=== PATIENT | female | born 1975 | race Caucasian/White ===

== ENCOUNTER 2019-03-04 16:55 | Emergency (ER) | payer OTHER, MEDICAID, SELFPAY ==
[2019-03-04 17:02] VITALS: BP 131/79; PULSE 64; RESP 20; TEMP 36.8; O2SAT 96
[2019-03-04 17:32] LABS: Add Manual Diff / Slide Review NO; Basophils Absolute Auto 100 /uL (0-100); Basophils Percent Auto 0.7 % (0-2); Eosinophils Absolute Auto 0 /uL (0-450); Eosinophils Percent Auto 0.4 % (2-4); Hematocrit 45.4 % (36-46); Hemoglobin 15.1 g/dL (12.0-16.0); Lymphocytes Absolute Auto 1800 /uL (1100-4500); Lymphocytes Percent Auto 20.3 % (25-40); Mean Corpuscular HGB Conc 33.2 % (30-36); Mean Corpuscular Hemoglobin 29.1 PG (26-34); Mean Corpuscular Volume 87.6 fL (80-100); Monocytes Absolute Auto 700 /uL (0-900); Monocytes Percent Auto 8.3 % (3-14); Neutrophils Absolute Auto 6200 /uL (1500-7000); Neutrophils Percent Auto 70.3 % (50-75); Platelet Count 230 X10^3/uL (150-400); Red Blood Cell Count 5.18 X10^6/uL (4.0-5.2); White Blood Cell Count 8.8 X10^3/uL (4.5-11.0)
[2019-03-04 17:48] LABS: PTT Partial Thromboplastin Tim 29 SECONDS (26.4-36.2)
[2019-03-04 17:54] LABS: Alanine Aminotransferase 65 IU/L (9-52); Albumin 4.3 g/dL (3.5-5.0); Albumin Globulin Ratio 1.5 (1.0-2.8); Alkaline Phosphatase 54 U/L (38-126); Aspartate Aminotransferase 30 IU/L (14-36); Bilirubin Total 0.6 mg/dL (0.2-1.3); Blood Urea Nitrogen 19 mg/dL (7-17); Calcium 9.6 mg/dL (8.4-10.2); Carbon Dioxide 26 mmol/L (22-32); Chloride 103 mmol/L (98-107); Globulin 2.9 g/dL (1.7-4.1); Glucose 105 mg/dL (70-100); HEMOLYSIS < 15 (0-50); Lipase 347 U/L (23-300); Potassium 4.5 mmol/L (3.4-5.1); Sodium 139 mmol/L (137-145); Total Protein 7.2 g/dL (6.3-8.2)
[2019-03-04 19:14] LABS: Bacteria Urine None Seen
[2019-03-04 19:23] LABS: RBC Urine 10-30/HPF (0-5/HPF); Squamous Epithelial Cell Urine 0-1 /HPF (0-5/HPF); WBC Urine 1-5/HPF (0-5/HPF)
[2019-03-04 19:24] LABS: Culture Indicated Urine Cult Not Indicated
[2019-03-04 20:04] VITALS: BP 134/69; PULSE 60; RESP 19; O2SAT 96
[2019-03-04 21:00] VITALS: BP 126/62; PULSE 51; RESP 17; O2SAT 95
[2019-03-04] MEDS: ONDANSETRON 4 MG ODT SL (21:45)
--- NOTE | 2019-03-04 22:47 | PC.NURSE ---
Reports nausea has improved since zofran given.
--- NOTE | 2019-03-04 22:59 | ED.NAVMDI ---
HPI - Nausea/Vomiting/Diarrhea General Chief complaint: Nausea/Vomiting/Diarrhea Stated complaint: ABD PAIN, DIFFICULTY WALKING SENT BY [facility] Time Seen by Provider: 03/04/19 20:55 Source: patient Mode of arrival: ambulatory Limitations: no limitations History of Present Illness HPI Narrative: Patient complains of right flank and abdominal pain, nausea, and vomiting which have been coming and going for the last 3 months. Patient states this episode started yesterday. She denies fevers or chills. She has been having ongoing dysuria, as well as hematuria, for which she is scheduled to follow-up with a urologist later this month. She is also supposed to follow up with a b2b sales representative regarding her ongoing abdominal symptoms. Patient states that she has had a total hysterectomy, as well as a cholecystectomy. She states she also has been noticing some right-sided back pain. She denies any injury. No chest symptoms. No cough or shortness of breath. No chest pain. Patient states that she was told she has a cyst in her low abdomen, but that this is not an ovarian cyst, because her ovaries have been removed as part of the hysterectomy. No other complaints at this time. Related Data Home Medications Medication Instructions Recorded Confirmed amlodipine 5 mg PO DAILY 03/04/19 03/04/19 buspirone 10 mg PO TID 03/04/19 03/04/19 diclofenac sodium 75 mg PO BID 03/04/19 03/04/19 gabapentin 300 mg PO TID 03/04/19 03/04/19 guanfacine 2 mg PO DAILY 03/04/19 03/04/19 hydroxyzine pamoate 25 mg PO DAILY 03/04/19 03/04/19 levofloxacin 750 mg PO DAILY 03/04/19 03/04/19 lisinopril 20 mg PO DAILY 03/04/19 03/04/19 metformin 1,000 mg PO BID 03/04/19 03/04/19 ondansetron 4 mg PO Q6H PRN 03/04/19 03/04/19 oxycodone-acetaminophen 1 tab PO TID PRN 03/04/19 03/04/19 prazosin 5 mg PO TID 03/04/19 ranitidine HCl 300 mg PO DAILY 03/04/19 03/04/19 sertraline 25 mg PO DAILY 03/04/19 03/04/19 trazodone 100 mg PO DAILY 03/04/19 03/04/19 Previous Rx's Medication Instructions Recorded ondansetron 4 mg PO Q6H PRN #10 tab 03/05/19 Allergies Allergy/AdvReac Type Severity Reaction Status Date / Time Penicillins [PENICILLINS] Allergy Unknown Unverified 10/30/17 12:21 Sulfa (Sulfonamide Allergy Unknown Unverified 10/30/17 12:21 Antibiotics) [SULFA (SULFONAMIDE ANTIBIOTICS)] Review of Systems Constitutional Denies chills, Denies fever(s), Denies lethargy and Denies weakness Eyes Denies change in vision, Denies eye discharge, Denies irritation and Denies loss of vision ENT Ears, Nose, Mouth, and Throat: Denies change in voice, Denies neck pain and Denies sore throat Cardiovascular Denies chest pain, Denies irregular heart rhythm, Denies lightheadedness, Denies palpitations, Denies dyspnea, Denies dyspnea on exertion and Denies orthopnea Respiratory Denies cough, Denies dyspnea, Denies dyspnea on exertion and Denies wheezing Gastrointestinal Gastrointestinal: Reports abdominal pain, Denies change in bowel habits, Denies diarrhea, Reports nausea and Reports vomiting Genitourinary Denies hematuria, Denies flank pain, Denies urinary incontinence and Denies urinary urgency Musculoskeletal Denies neck pain Integumentary/Breasts Denies pruritus, Denies erythema, Denies rash and Denies wounds Neurologic Denies confusion, Denies loss of vision and Denies weakness Psychiatric Denies anxiety, Denies confusion, Denies depression, Denies homicidal ideation and Denies suicidal ideation Endocrine Denies palpitations Hematologic/Lymphatic Denies easy bruising Allergic/Immunologic Denies wheezing PFSH Medical History (Updated 03/05/19 @ 01:19 by Angelica Lee MD) H/O: hysterectomy (Acute) Chronic abdominal pain (Acute) Obesity (Acute) Anxiety (Acute) Surgical History Hx of cholecystectomy (Acute) Social History Smoking Status: Never smoker Social History Smoking Status: Never smoker Exam Initial Vital Signs Initial Vital Signs: Vital Signs Temperature 98.2 F 03/04/19 17:02 Pulse Rate 64 03/04/19 17:02 Respiratory Rate 20 03/04/19 17:02 Blood Pressure 131/79 03/04/19 17:02 Pulse Oximetry 96 03/04/19 17:02 Const General: cooperative and well developed Nutritional Appearance: well nourished Orientation: alert, awake, oriented x3 and not confused [facility] Head: normocephalic and atraumatic Ears: external ears normal Nose: external nose normal and No nasal discharge Face and sinus: face symmetric and No dry mucous membranes Mouth: oral mucosae normal and moist mucous membranes Teeth and gingiva: dentition normal Eyes General: appearance normal, both eyes and all related structures Eyelids: eyelids normal Conjunctivae: conjunctivae normal Sclera: sclerae normal Pupils: PERRL EOM: EOM intact bilaterally Neck Neck: normal visual inspection, trachea midline, No lymphadenopathy, No midline deformity and No JVD Lymphatic: No lymphedema Chest Chest: normal inspection of the chest Resp Effort & Inspection: normal respiratory effort, able to speak in complete sentences, no respiratory distress and no use of accessory muscles Auscultation: clear to auscultation bilaterally, no rales, no rhonchi and no wheezes Cardio Rate: regular rate Rhythm: regular rhythm Heart Sounds: no click, no gallops, no murmurs and no rubs Pulses: normal peripheral pulses GI Inspection: non-distended Palpation: soft, no hepatosplenomegaly, No guarding, No pulsatile mass and tender (Diffuse, right-sided and epigastric, moderate; no rebound) Back/Spine/Pelvis Back: CVA tenderness (Mild) right Cervical Spine: cervical ROM normal and No pain with cervical ROM Thoracic/Lumbar Spine: thoracic and lumbar spine normal to inspection Skin General: no rashes or lesions noted, No jaundice and No petechiae Neuro General: alert, oriented x3, gait normal and no focal motor deficits Speech: speech normal Extrem General: full ROM, no clubbing, cyanosis or edema, no pedal edema and no calf tenderness Psych Appearance: well kempt Mental Status: mental status grossly normal Attitude: cooperative Thought Content: normal and suicidality Judgment: judgment good Course Course Narrative: Patient was worked up with laboratory studies and urinalysis. The patient and mother reported that the patient has had many many CTs for abdominal symptoms, including her most recent one at [facility] on February 03. As such, given the ongoing nature of her symptoms, I did not feel that a repeat CT scan should be done at this time. Patient's laboratory studies were unremarkable. She was treated symptomatically in the emergency department, and found to be feeling better. We have discussed the importance of follow-up, as well as the usual indications for return. We have also discussed home management of the symptoms. Orders Ordered: Discontinued Medications Hydromorphone HCl (Dilaudid) 1 mg IV NOW ONE Stop: 03/05/19 00:28 Last Admin: 03/05/19 00:36 Dose: 1 mg Sodium Chloride (Normal Saline 0.9%) 1,000 mls @ 1,000 mls/hr IV BOLUS ONE Stop: 03/05/19 00:14 Last Infusion: 03/05/19 00:37 Dose: 1,000 mls/hr Admin: 03/04/19 23:22 Dose: 1,000 mls/hr Ketorolac Tromethamine (Toradol) 30 mg IV NOW ONE Stop: 03/04/19 23:17 Last Admin: 03/04/19 23:22 Dose: 30 mg Ondansetron HCl (Zofran Odt) 4 mg SL NOW ONE Stop: 03/04/19 21:43 Last Admin: 03/04/19 21:45 Dose: 4 mg Ondansetron HCl (Zofran) 4 mg IV NOW ONE Stop: 03/04/19 23:16 Last Admin: 03/04/19 23:22 Dose: 4 mg Vital Signs - 8 hr 03/04/19 17:02 03/04/19 20:04 03/04/19 21:00 Temperature 98.2 F Pulse Rate 64 60 51 L Respiratory Rate 20 19 17 Blood Pressure 131/79 Blood Pressure [Left Arm] 134/69 126/62 Pulse Oximetry 96 96 95 MDM - Nausea/Vomiting/Diarrhea Medical Records Attestation: I reviewed the patient's medical records. Lab Data Attestation: I reviewed the patient's lab results. Result diagrams: 03/04/19 17:25 03/04/19 17:25 Lab Results 03/04/19 03/04/19 03/04/19 Range/Units 17:25 17:25 17:25 WBC 8.8 (4.5-11.0) X10^3/uL RBC 5.18 (4.0-5.2) X10^6/uL Hgb 15.1 (12.0-16.0) g/dL Hct 45.4 (36-46) % MCV 87.6 (80-100) fL MCH 29.1 (26-34) PG MCHC 33.2 (30-36) % RDW 17.0 H (11.6-14.8) % Plt Count 230 (150-400) X10^3/uL Neut % (Auto) 70.3 (50-75) % Lymph % (Auto) 20.3 L (25-40) % Gordon % (Auto) 8.3 (3-14) % Eos % (Auto) 0.4 L (2-4) % Baso % (Auto) 0.7 (0-2) % Neut # (Auto) 6200 (7136-9237) /uL Lymph # (Auto) 1800 (9667-7716) /uL Gordon # (Auto) 700 (0-900) /uL Eos # (Auto) 0 (0-450) /uL Baso # (Auto) 100 (0-100) /uL PT 11.0 (10.1-12.7) SECONDS INR 1.0 (0.9-1.3) APTT 29 (26.4-36.2) SECONDS Sodium 139 (137-145) mmol/L Potassium 4.5 (3.4-5.1) mmol/L Chloride 103 (98-107) mmol/L Carbon Dioxide 26 (22-32) mmol/L BUN 19 H (7-17) mg/dL Creatinine 1.00 (0.52-1.04) mg/dL Estimated GFR 60.0 (>60) mL/min BUN/Creatinine Ratio 19.0 (6-22) Glucose 105 H (70-100) mg/dL Calcium 9.6 (8.4-10.2) mg/dL Total Bilirubin 0.6 (0.2-1.3) mg/dL AST 30 (14-36) IU/L ALT 65 H (9-52) IU/L Alkaline Phosphatase 54 (38-126) U/L Total Protein 7.2 (6.3-8.2) g/dL Albumin 4.3 (3.5-5.0) g/dL Globulin 2.9 (1.7-4.1) g/dL Albumin/Globulin Ratio 1.5 (1.0-2.8) Lipase 347 H (23-300) U/L Urine RBC (0-5/HPF) Urine WBC (0-5/HPF) Ur Squamous Epith Cells (0-5/HPF) Urine Bacteria (None) Ur Culture Indicated? 03/04/19 Range/Units 18:55 WBC (4.5-11.0) X10^3/uL RBC (4.0-5.2) X10^6/uL Hgb (12.0-16.0) g/dL Hct (36-46) % MCV (80-100) fL MCH (26-34) PG MCHC (30-36) % RDW (11.6-14.8) % Plt Count (150-400) X10^3/uL Neut % (Auto) (50-75) % Lymph % (Auto) (25-40) % Gordon % (Auto) (3-14) % Eos % (Auto) (2-4) % Baso % (Auto) (0-2) % Neut # (Auto) (1799-5571) /uL Lymph # (Auto) (0327-5714) /uL Gordon # (Auto) (0-900) /uL Eos # (Auto) (0-450) /uL Baso # (Auto) (0-100) /uL PT (10.1-12.7) SECONDS INR (0.9-1.3) APTT (26.4-36.2) SECONDS Sodium (137-145) mmol/L Potassium (3.4-5.1) mmol/L Chloride (98-107) mmol/L Carbon Dioxide (22-32) mmol/L BUN (7-17) mg/dL Creatinine (0.52-1.04) mg/dL Estimated GFR (>60) mL/min BUN/Creatinine Ratio (6-22) Glucose (70-100) mg/dL Calcium (8.4-10.2) mg/dL Total Bilirubin (0.2-1.3) mg/dL AST (14-36) IU/L ALT (9-52) IU/L Alkaline Phosphatase (38-126) U/L Total Protein (6.3-8.2) g/dL Albumin (3.5-5.0) g/dL Globulin (1.7-4.1) g/dL Albumin/Globulin Ratio (1.0-2.8) Lipase (23-300) U/L Urine RBC 10-30/hpf H (0-5/HPF) Urine WBC 1-5/hpf (0-5/HPF) Ur Squamous Epith Cells 0-1 /hpf (0-5/HPF) Urine Bacteria None seen (None) Ur Culture Indicated? Cult not indicated Urine Dip Bedside Urine Glucose Negative Bedside Urine Bilirubin - Negative Bedside Urine Ketone +/- 5 Urine Specific [place] 1.030 Bedside Urine Occult Blood +++ Bedside Urine pH 5.5 Bedside Urine Protein +/- 15 Bedside Urine Urobilinogen - Negative Bedside Urine Nitrite - Negative Bedside Urine Leukocytes - Negative Esterase Discharge Plan Departure Patient Disposition: Home Clinical Impression: Acute right flank pain Discharge Date/Time: 03/05/19 01:35 Interventions: ED Discharge Assessment Last Done: 03/05/19 01:52 Instructions: DI for Abdominal Pain-Adult, DI for Nausea -- Adult Activity Restrictions/Additional Instructions: Your labs look good. Urinalysis shows some blood but no infection. There is no evidence an infection anywhere else at this time, and given this and the number of CT scans you have already had, it is not advisable for you to have another CT scan at this time. Please continue your plans to follow up with Urology and Gastroenterology for your ongoing symptoms. Your prescription has been electronically transmitted to [facility]. Prescriptions: New ondansetron 4 mg tablet,disintegrating 4 mg PO Q6H PRN (Reason: nausea and vomiting) Qty: 10 RF: 0 No Action ranitidine HCl 300 mg tablet 300 mg PO DAILY RF: 0 lisinopril 20 mg tablet 20 mg PO DAILY RF: 0 amlodipine 5 mg tablet 5 mg PO DAILY RF: 0 prazosin 5 mg capsule 5 mg PO TID RF: 0 oxycodone-acetaminophen 5-325 mg tablet 1 tab PO TID PRN (Reason: PAIN) RF: 0 trazodone 100 mg tablet 100 mg PO DAILY RF: 0 metformin 1,000 mg tablet 1,000 mg PO BID RF: 0 buspirone 10 mg tablet 10 mg PO TID RF: 0 gabapentin 300 mg capsule 300 mg PO TID RF: 0 sertraline 25 mg tablet 25 mg PO DAILY RF: 0 diclofenac sodium 75 mg tablet,delayed release (DR/EC) 75 mg PO BID RF: 0 levofloxacin 750 mg tablet 750 mg PO DAILY RF: 0 ondansetron 4 mg tablet,disintegrating 4 mg PO Q6H PRN (Reason: Nausea) RF: 0 hydroxyzine pamoate 25 mg capsule 25 mg PO DAILY RF: 0 guanfacine 2 mg tablet extended release 24 hr 2 mg PO DAILY RF: 0 Referrals: Domi Moran MD [Primary Care Provider] -
--- NOTE | 2019-03-04 23:05 | ED_ITS ---
HPI - Nausea/Vomiting/Diarrhea General Chief complaint: Nausea/Vomiting/Diarrhea Stated complaint: ABD PAIN, DIFFICULTY WALKING SENT BY [facility] Time Seen by Provider: 03/04/19 20:55 Source: patient Mode of arrival: ambulatory Limitations: no limitations History of Present Illness HPI Narrative: Patient complains of right flank and abdominal pain, nausea, and vomiting which have been coming and going for the last 3 months. Patient states this episode started yesterday. She denies fevers or chills. She has been hav ing ongoing dysuria, as well as hematuria, for which she is scheduled to follow- up with a urologist later this month. She is also supposed to follow up with a cableway operator regarding her ongoing abdominal symptoms. Patient states that she has had a total hysterectomy, as well as a cholecystectomy. She states she also has been noticing some right-sided back pain. She denies any injury. No chest symptoms. No cough or shortness of breath. No chest pain. Patient states that she was told she has a cyst in her low abdomen, but that this is not an ovarian cyst, because her ovaries have been removed as part of the hysterectomy. No other complaints at this time. Related Data Home Medications Medication Instructions Recorded Confirmed amlodipine 5 mg PO DAILY 03/04/19 03/04/19 buspirone 10 mg PO TID 03/04/19 03/04/19 diclofenac sodium 75 mg PO BID 03/04/19 03/04/19 gabapentin 300 mg PO TID 03/04/19 03/04/19 guanfacine 2 mg PO DAILY 03/04/19 03/04/19 hydroxyzine pamoate 25 mg PO DAILY 03/04/19 03/04/19 levofloxacin 750 mg PO DAILY 03/04/19 03/04/19 lisinopril 20 mg PO DAILY 03/04/19 03/04/19 metformin 1,000 mg PO BID 03/04/19 03/04/19 ondansetron 4 mg PO Q6H PRN 03/04/19 03/04/19 oxycodone-acetaminophen 1 tab PO TID PRN 03/04/19 03/04/19 prazosin 5 mg PO TID 03/04/19 ranitidine HCl 300 mg PO DAILY 03/04/19 03/04/19 sertraline 25 mg PO DAILY 03/04/19 03/04/19 trazodone 100 mg PO DAILY 03/04/19 03/04/19 Previous Rx's Medication Instructions Recorded ondansetron 4 mg PO Q6H PRN #10 tab 03/05/19 Allergies Allergy/AdvReac Type Severity Reaction Status Date / Time Penicillins [PENICILLINS] Allergy Unknown Unverified 10/30/17 12:21 Sulfa (Sulfonamide Allergy Unknown Unverified 10/30/17 12:21 Antibiotics) [SULFA (SULFONAMIDE ANTIBIOTICS)] Review of Systems Constitutional Denies chills, Denies fever(s), Denies lethargy and Denies weakness Eyes Denies change in vision, Denies eye discharge, Denies irritation and Denies loss of vision ENT Ears, Nose, Mouth, and Throat: Denies change in voice, Denies neck pain and Denies sore throat Cardiovascular Denies chest pain, Denies irregular heart rhythm, Denies lightheadedness, Denies palpitations, Denies dyspnea, Denies dyspnea on exertion and Denies orthopnea Respiratory Denies cough, Denies dyspnea, Denies dyspnea on exertion and Denies wheezing Gastrointestinal Gastrointestinal: Reports abdominal pain, Denies change in bowel habits, Denies diarrhea, Reports nausea and Reports vomiting Genitourinary Denies hematuria, Denies flank pain, Denies urinary incontinence and Denies urinary urgency Musculoskeletal Denies neck pain Integumentary/Breasts Denies pruritus, Denies erythema, Denies rash and Denies wounds Neurologic Denies confusion, Denies loss of vision and Denies weakness Psychiatric Denies anxiety, Denies confusion, Denies depression, Denies homicidal ideation and Denies suicidal ideation Endocrine Denies palpitations Hematologic/Lymphatic Denies easy bruising Allergic/Immunologic Denies wheezing PFSH Medical History (Updated 03/05/19 @ 01:19 by Angelica Lee MD) H/O: hysterectomy (Acute) Chronic abdominal pain (Acute) Obesity (Acute) Anxiety (Acute) Surgical History Hx of cholecystectomy (Acute) Social History Smoking Status: Never smoker Social History Smoking Status: Never smoker Exam Initial Vital Signs Initial Vital Signs: Vital Signs Temperature 98.2 F 03/04/19 17:02 Pulse Rate 64 03/04/19 17:02 Respiratory Rate 20 03/04/19 17:02 Blood Pressure 131/79 03/04/19 17:02 Pulse Oximetry 96 03/04/19 17:02 Const General: cooperative and well developed Nutritional Appearance: well nourished Orientation: alert, awake, oriented x3 and not confused [facility] Head: normocephalic and atraumatic Ears: external ears normal Nose: external nose normal and No nasal discharge Face and sinus: face symmetric and No dry mucous membranes Mouth: oral mucosae normal and moist mucous membranes Teeth and gingiva: dentition normal Eyes General: appearance normal, both eyes and all related structures Eyelids: eyelids normal Conjunctivae: conjunctivae normal Sclera: sclerae normal Pupils: PERRL EOM: EOM intact bilaterally Neck Neck: normal visual inspection, trachea midline, No lymphadenopathy, No midline deformity and No JVD Lymphatic: No lymphedema Chest Chest: normal inspection of the chest Resp Effort & Inspection: normal respiratory effort, able to speak in complete sentences, no respiratory distress and no use of accessory muscles Auscultation: clear to auscultation bilaterally, no rales, no rhonchi and no wheezes Cardio Rate: regular rate Rhythm: regular rhythm Heart Sounds: no click, no gallops, no murmurs and no rubs Pulses: normal peripheral pulses GI Inspection: non-distended Palpation: soft, no hepatosplenomegaly, No guarding, No pulsatile mass and tender (Diffuse, right-sided and epigastric, moderate; no rebound) Back/Spine/Pelvis Back: CVA tenderness (Mild) right Cervical Spine: cervical ROM normal and No pain with cervical ROM Thoracic/Lumbar Spine: thoracic and lumbar spine normal to inspection Skin General: no rashes or lesions noted, No jaundice and No petechiae Neuro General: alert, oriented x3, gait normal and no focal motor deficits Speech: speech normal Extrem General: full ROM, no clubbing, cyanosis or edema, no pedal edema and no calf tenderness Psych Appearance: well kempt Mental Status: mental status grossly normal Attitude: cooperative Thought Content: normal and suicidality Judgment: judgment good Course Course Narrative: Patient was worked up with laboratory studies and urinalysis. The patient and mother reported that the patient has had many many CTs for abdominal symptoms, including her most recent one at [facility] on February 03. As such, given the ongoing nature of her symptoms, I did not feel that a repeat CT scan should be done at this time. Patient's laboratory studies were unremarkable. She was treated symptomatically in the emergency department, and found to be feeling better. We have discussed the importance of follow-up, as well as the usual indications for return. We have also discussed home management of the symptoms. Orders Ordered: Discontinued Medications Hydromorphone HCl (Dilaudid) 1 mg IV NOW ONE Stop: 03/05/19 00:28 Last Admin: 03/05/19 00:36 Dose: 1 mg Sodium Chloride (Normal Saline 0.9%) 1,000 mls @ 1,000 mls/hr IV BOLUS ONE Stop: 03/05/19 00:14 Last Infusion: 03/05/19 00:37 Dose: 1,000 mls/hr Admin: 03/04/19 23:22 Dose: 1,000 mls/hr Ketorolac Tromethamine (Toradol) 30 mg IV NOW ONE Stop: 03/04/19 23:17 Last Admin: 03/04/19 23:22 Dose: 30 mg Ondansetron HCl (Zofran Odt) 4 mg SL NOW ONE Stop: 03/04/19 21:43 Last Admin: 03/04/19 21:45 Dose: 4 mg Ondansetron HCl (Zofran) 4 mg IV NOW ONE Stop: 03/04/19 23:16 Last Admin: 03/04/19 23:22 Dose: 4 mg Vital Signs - 8 hr 03/04/19 17:02 03/04/19 20:04 03/04/19 21:00 Temperature 98.2 F Pulse Rate 64 60 51 L Respiratory Rate 20 19 17 Blood Pressure 131/79 Blood Pressure [Left Arm] 134/69 126/62 Pulse Oximetry 96 96 95 MDM - Nausea/Vomiting/Diarrhea Medical Records Attestation: I reviewed the patient's medical records. Lab Data Attestation: I reviewed the patient's lab results. Result diagrams: 03/04/19 17:25 03/04/19 17:25 Lab Results 03/04/19 03/04/19 03/04/19 Range/Units 17:25 17:25 17:25 WBC 8.8 (4.5-11.0) X10^3/uL RBC 5.18 (4.0-5.2) X10^6/uL Hgb 15.1 (12.0-16.0) g/dL Hct 45.4 (36-46) % MCV 87.6 (80-100) fL MCH 29.1 (26-34) PG MCHC 33.2 (30-36) % RDW 17.0 H (11.6-14.8) % Plt Count 230 (150-400) X10^3/uL Neut % (Auto) 70.3 (50-75) % Lymph % (Auto) 20.3 L (25-40) % Moffat % (Auto) 8.3 (3-14) % Eos % (Auto) 0.4 L (2-4) % Baso % (Auto) 0.7 (0-2) % Neut # (Auto) 6200 (1748-8977) /uL Lymph # (Auto) 1800 (5716-9278) /uL Moffat # (Auto) 700 (0-900) /uL Eos # (Auto) 0 (0-450) /uL Baso # (Auto) 100 (0-100) /uL PT 11.0 (10.1-12.7) SECONDS INR 1.0 (0.9-1.3) APTT 29 (26.4-36.2) SECONDS Sodium 139 (137-145) mmol/L Potassium 4.5 (3.4-5.1) mmol/L Chloride 103 (98-107) mmol/L Carbon Dioxide 26 (22-32) mmol/L BUN 19 H (7-17) mg/dL Creatinine 1.00 (0.52-1.04) mg/dL Estimated GFR 60.0 (>60) mL/min BUN/Creatinine Ratio 19.0 (6-22) Glucose 105 H (70-100) mg/dL Calcium 9.6 (8.4-10.2) mg/dL Total Bilirubin 0.6 (0.2-1.3) mg/dL AST 30 (14-36) IU/L ALT 65 H (9-52) IU/L Alkaline Phosphatase 54 (38-126) U/L Total Protein 7.2 (6.3-8.2) g/dL Albumin 4.3 (3.5-5.0) g/dL Globulin 2.9 (1.7-4.1) g/dL Albumin/Globulin Ratio 1.5 (1.0-2.8) Lipase 347 H (23-300) U/L Urine RBC (0-5/HPF) Urine WBC (0-5/HPF) Ur Squamous Epith Cells (0-5/HPF) Urine Bacteria (None) Ur Culture Indicated? 03/04/19 Range/Units 18:55 WBC (4.5-11.0) X10^3/uL RBC (4.0-5.2) X10^6/uL Hgb (12.0-16.0) g/dL Hct (36-46) % MCV (80-100) fL MCH (26-34) PG MCHC (30-36) % RDW (11.6-14.8) % Plt Count (150-400) X10^3/uL Neut % (Auto) (50-75) % Lymph % (Auto) (25-40) % Moffat % (Auto) (3-14) % Eos % (Auto) (2-4) % Baso % (Auto) (0-2) % Neut # (Auto) (7332-9182) /uL Lymph # (Auto) (0002-9025) /uL Moffat # (Auto) (0-900) /uL Eos # (Auto) (0-450) /uL Baso # (Auto) (0-100) /uL PT (10.1-12.7) SECONDS INR (0.9-1.3) APTT (26.4-36.2) SECONDS Sodium (137-145) mmol/L Potassium (3.4-5.1) mmol/L Chloride (98-107) mmol/L Carbon Dioxide (22-32) mmol/L BUN (7-17) mg/dL Creatinine (0.52-1.04) mg/dL Estimated GFR (>60) mL/min BUN/Creatinine Ratio (6-22) Glucose (70-100) mg/dL Calcium (8.4-10.2) mg/dL Total Bilirubin (0.2-1.3) mg/dL AST (14-36) IU/L ALT (9-52) IU/L Alkaline Phosphatase (38-126) U/L Total Protein (6.3-8.2) g/dL Albumin (3.5-5.0) g/dL Globulin (1.7-4.1) g/dL Albumin/Globulin Ratio (1.0-2.8) Lipase (23-300) U/L Urine RBC 10-30/hpf H (0-5/HPF) Urine WBC 1-5/hpf (0-5/HPF) Ur Squamous Epith Cells 0-1 /hpf (0-5/HPF) Urine Bacteria None seen (None) Ur Culture Indicated? Cult not indicated Urine Dip Bedside Urine Glucose Negative Bedside Urine Bilirubin - Negative Bedside Urine Ketone +/- 5 Urine Specific Loma 1.030 Bedside Urine Occult Blood +++ Bedside Urine pH 5.5 Bedside Urine Protein +/- 15 Bedside Urine Urobilinogen - Negative Bedside Urine Nitrite - Negative Bedside Urine Leukocytes - Negative Esterase Discharge Plan Departure Patient Disposition: Home Clinical Impression: Acute right flank pain Discharge Date/Time: 03/05/19 01:35 Interventions: ED Discharge Assessment Last Done: 03/05/19 01:52 Instructions: DI for Abdominal Pain-Adult, DI for Nausea -- Adult Activity Restrictions/Additional Instructions: Your labs look good. Urinalysis shows some blood but no infection. There is no evidence an infection anywhere else at this time, and given this and the number of CT scans you have already had, it is not advisable for you to have another CT scan at this time. Please continue your plans to follow up with Urology and Gastroenterology for your ongoing symptoms. Your prescription has been electronically transmitted to [facility]. Prescriptions: New ondansetron 4 mg tablet,disintegrating 4 mg PO Q6H PRN (Reason: nausea and vomiting) Qty: 10 RF: 0 No Action ranitidine HCl 300 mg tablet 300 mg PO DAILY RF: 0 lisinopril 20 mg tablet 20 mg PO DAILY RF: 0 amlodipine 5 mg tablet 5 mg PO DAILY RF: 0 prazosin 5 mg capsule 5 mg PO TID RF: 0 oxycodone-acetaminophen 5-325 mg tablet 1 tab PO TID PRN (Reason: PAIN) RF: 0 trazodone 100 mg tablet 100 mg PO DAILY RF: 0 metformin 1,000 mg tablet 1,000 mg PO BID RF: 0 buspirone 10 mg tablet 10 mg PO TID RF: 0 gabapentin 300 mg capsule 300 mg PO TID RF: 0 sertraline 25 mg tablet 25 mg PO DAILY RF: 0 diclofenac sodium 75 mg tablet,delayed release (DR/EC) 75 mg PO BID RF: 0 levofloxacin 750 mg tablet 750 mg PO DAILY RF: 0 ondansetron 4 mg tablet,disintegrating 4 mg PO Q6H PRN (Reason: Nausea) RF: 0 hydroxyzine pamoate 25 mg capsule 25 mg PO DAILY RF: 0 guanfacine 2 mg tablet extended release 24 hr 2 mg PO DAILY RF: 0 Referrals: Domi Moran MD [Primary Care Provider] -
[2019-03-04 23:22] VITALS: BP 136/81; PULSE 60; RESP 18; O2SAT 97
[2019-03-04] MEDS: SODIUM CHLORIDE 0.9% 1,000 ML 1000 ML IV (23:22)
[2019-03-04] MEDS: KETOROLAC 60 MG/2 ML VIAL 30 MG IV (23:22)
[2019-03-04] MEDS: ONDANSETRON 4 MG/2 ML INJ IV (23:22)
[2019-03-05] MEDS: HYDROMORPHONE 1 MG INJ IV (00:36)
[2019-03-05 00:58] VITALS: BP 123/72; PULSE 62; RESP 16; O2SAT 96
== END 2019-03-05 01:35 | disposition home or self-care (01) ==
PROVIDERS: Emergency Medicine; Emergency Provider Emergency Medicine; Family Provider Family Medicine; PCP Family Medicine
DX: R10.9 Unspecified abdominal pain (principal)
CPT/HCPCS: 36415; 80053; 81003; 81015; 83690; 85025; 85610; 85730; 96361; 96374; 96375; 99283; 99284; J1170; J1885; J2405

== ENCOUNTER → 2019-03-18 10:51 | Outpatient (CLI) | payer OTHER, MEDICAID, SELFPAY ==
--- NOTE | 2019-03-18 | DI.CT.S_ITS ---
PROCEDURE: CT KIDNEY URETER BLADDER (KUB) INDICATIONS: Other microscopic hematuria TECHNIQUE: Noncontrast 5 mm thick sections acquired from the diaphragms to the symphysis. 5 mm thick coronal and sagittal reformats were then performed. For radiation dose reduction, the following was used: automated exposure control, adjustment of mA and/or kV according to patient size. COMPARISON: [facility], CT, KIDNEY/ URETER/BLADDER, 05/01/2015, 16:02. FINDINGS: Image quality: Excellent. Lung bases: Lung bases are clear. Heart size is normal. Urinary system: Both kidneys are normal in size. Previously identified nephrolith within the right kidney seen on comparison exam of 05/01/15 is no longer present on the current exam. There is a punctate calcification within or adjacent the distal left ureter near the ureterovesicular junction on axial and 82 of series 3. Otherwise, no nephrolithiasis identified. No hydronephrosis. There is mild/moderate bilateral perinephric fat stranding. Both ureters appear non-dilated throughout their expected courses. Bladder wall thickness is normal; no calcified bladder stones. Other solid organs: Liver is normal in size. Gallbladder is surgically absent. Pancreas is normal in contours. Spleen is normal in size. No adrenal nodules. Peritoneum and bowel: Unenhanced bowel loops demonstrate normal wall thickness and caliber. No free fluid or air. Normal appendix seen on axial image 69 of series 3. Nodes and vessels: No retroperitoneal or mesenteric adenopathy by size criteria. Aorta and inferior vena cava are normal in caliber. Abdominal wall: The anterior abdominal wall thought to included on the inhgt-av-zada of this exam. Pelvis: No free pelvic fluid. No inguinal hernias or adenopathy. Bones: There is moderate multilevel degenerative change of the imaged lower thoracolumbar spine. There is a posterior disc protrusion and osteophyte complex at L2-L3 which results in approximately 50% stenosis of the spinal canal at this level. There is a chronic-appearing mild superior endplate compression deformity of the T10 vertebral body, likely secondary to degenerative change. IMPRESSION: 1. Punctate calcification within or adjacent the distal left ureter near the ureterovesicular junction may represent a nonobstructing ureteral stone versus pelvic phlebolith. No hydronephrosis or other ureteral, renal, or bladder stone identified. 2. Posterior disc osteophyte complex at L2-L3 resulting in approximately 50% stenosis of the spinal canal at this level. 3. Chronic-appearing mild superior endplate compression deformity of the T10 vertebral body is likely secondary to degenerative change, consider correlation with point tenderness to exclude acute fracture. Dictated by: Julio Cesar Khan M.D. on 03/18/2019 at 18:26 Approved by: Julio Cesar Khan M.D. on 03/18/2019 at 19:15
== END ==
PROVIDERS: Family Provider Family Medicine; PCP Family Medicine; Visit Provider Urology
DX: R31.29 Other microscopic hematuria (principal)
CPT/HCPCS: 74176

== ENCOUNTER → 2019-05-28 09:40 | Outpatient (CLI) | payer OTHER, MEDICAID, SELFPAY ==
--- NOTE | 2019-05-28 10:05 | DI.CT.S_ITS ---
PROCEDURE: CT ABDOMEN PELVIS WO/W CON INDICATIONS: HEMATURIA TECHNIQUE: Optional 5 mm thick noncontrast images acquired from the diaphragm to the symphysis pubis. After the administration of intravenous contrast, 5 mm thick images acquired from the diaphragm to the symphysis pubis after a 10-minute delay. 2 mm thick coronal and sagittal reformats were then performed of the kidneys and ureters. For radiation dose reduction, the following was used: automated exposure control, adjustment of mA and/or kV according to patient size. COMPARISON: [facility], CT, CT KIDNEY URETER BLADDER (KUB), 03/18/2019, 10:58. FINDINGS: Image quality: Excellent. Lung bases: Lung bases are clear. Heart size is normal. Urinary system: No hydronephrosis or nephrolithiasis on pre-contrast images. Chronic appearing perinephric stranding about the right kidney, and the left kidney to lesser extent. 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 There is normal bilateral renal enhancement. Renal calyces appear normal in morphology when filled with contrast. Opacified portions of both ureters demonstrate normal caliber. Pelvic phleboliths incidentally noted. Bladder is largely decompressed otherwise unremarkable. No calcified bladder stones. Other solid organs: Liver is normal in size and enhancement. Gallbladder surgically absent. Biliary system is non dilated. Pancreas enhances normally. Spleen is normal in size and enhancement. No adrenal nodules. Peritoneum and bowel: Bowel loops demonstrate normal wall thickness and caliber. No free fluid or air. Nodes and vessels: No retroperitoneal or mesenteric adenopathy by size criteria. Aorta and inferior vena cava are normal in size. Abdominal wall: No ventral hernias. Pelvis: No pathologic free pelvic fluid. No inguinal hernias or adenopathy. Bones: No suspicious bony lesions. No vertebral body compression fractures. Multilevel spondylosis IMPRESSION: Overall, no hydronephrosis. No evidence of urolithiasis. No specific visualized etiology for hematuria identified. Dictated by: Bernardo Harkins M.D. on 05/28/2019 at 13:56 Approved by: Bernardo Harkins M.D. on 05/28/2019 at 14:04
== END ==
PROVIDERS: PCP Family Medicine; Visit Provider Urology
DX: R31.9 Hematuria, unspecified (principal); Z90.49 Acquired absence of other specified parts of digestive tract
CPT/HCPCS: 74178; Q9967

== ENCOUNTER → 2021-11-15 07:48 | Outpatient (CLI) | payer OTHER, MEDICAID, SELFPAY ==
--- NOTE | 2021-11-15 07:49 | DI.RAD.S_ITS ---
PROCEDURE: XR LUMBAR SPINE MIN 4V INDICATIONS: BACK PAIN TECHNIQUE: 5 views of the lumbar spine were acquired, including bilateral oblique views. COMPARISON: [facility], RG, MRI L-SPINE W/O CONTRAST, 09/26/2020, 12:29. FINDINGS: Bones: 5 nonrib-bearing vertebrae are present. There is normal bony alignment. No vertebral body compression fractures. No suspicious bony lesions. Advanced multilevel degenerative disc disease with associated bulky osteophytes. Prominent lower lumbar facet arthropathy. Soft tissues: Overlying bowel gas pattern is normal. No suspicious soft tissue calcifications. Oblique images: No pars defects. IMPRESSION: Degenerative change. No acute compression fractures. Dictated by: Ervin Valdez M.D. on 11/15/2021 at 10:57 Approved by: Ervin Valdez M.D. on 11/15/2021 at 10:59
== END ==
PROVIDERS: PCP Family Medicine; Referring Provider Physical Medicine & Rehabilitation; Visit Provider Physical Medicine & Rehabilitation
DX: M51.36 Other intervertebral disc degeneration, lumbar region (principal); M47.816 Spondylosis without myelopathy or radiculopathy, lumbar region; M48.061 Spinal stenosis, lumbar region without neurogenic claudication; M51.26 Other intervertebral disc displacement, lumbar region; M41.25 Other idiopathic scoliosis, thoracolumbar region; F41.9 Anxiety disorder, unspecified; E66.01 Morbid (severe) obesity due to excess calories; Z68.42 Body mass index [BMI] 45.0-49.9, adult
CPT/HCPCS: 72110; 99214

== ENCOUNTER → 2023-10-17 14:53 | Outpatient (CLI) | payer OTHER, MEDICAID, SELFPAY ==
--- NOTE | 2023-10-17 14:54 | DI.RAD.S_ITS ---
PROCEDURE: FL JOINT INJECTION MEDIUM RT INDICATIONS: STEROID INJECTION RT GLENOHUMERAL JOINT COMPARISON: None. TECHNIQUE: The indications, alternatives, benefits, risks, and complications of the procedure were explained to the patient. Written informed consent was obtained and placed in the chart. The patient was placed in an appropriate position on the fluoroscopy table, and a site was chosen for percutaneous access under fluoroscopic guidance. The site was prepped and draped in a sterile fashion. Local anesthetic was administered using a 1% lidocaine solution. A hypodermic or spinal needle was then used to access the symptomatic joint. Intra-articular location of the needle tip was confirmed by feeling pressure drop (no contrast used because of history of contrast allergy), followed by steroid administration. The needle was then withdrawn, and a bandage applied to the puncture site. FINDINGS: Joint injected: Right shoulder Medications injected: 4 mL of 40 mg/mL Kenalog and 0.5% Ropivacaine mixture. Patient's pain before injection: 7 out of 10. Patient's pain after injection: 4 out of 10. Complications: None. IMPRESSION: Successful fluoroscopically guided administration of steroid and anaesthetic solution into the right shoulder joint. Dictated by: Eli Rascon M.D. on 10/18/2023 at 9:38 Approved by: Eli Rascon M.D. on 10/18/2023 at 9:39
[2023-10-17] MEDS: LIDOCAINE 1% 20 ML INJ (15:46)
[2023-10-17] MEDS: ROPIVACAINE 0.5% PF 5 MG/ML 20ML VIAL 20 ML INJ (15:46)
[2023-10-17] MEDS: TRIAMCINOLONE 40 MG/ML VIAL INTRA-ARTI (15:47)
== END ==
PROVIDERS: PCP Family Medicine; Referring Provider Orthopaedic Surgery; Visit Provider Orthopaedic Surgery
DX: M19.011 Primary osteoarthritis, right shoulder (principal)
CPT/HCPCS: 20605; 77002